=== PATIENT | female | born 2000 ===

== ENCOUNTER 2025-01-19 08:00 | Inpatient (IN) | payer OTHER ==
[~2025-01-19] VITALS: Ht 172.7 cm; Wt 100.7 kg
[2025-01-19 11:01] LABS: BASO % 0.5 % (0.1-1.2); EOS # 0.18 (0.04-0.54); EOS % 1.9 % (0.7-7.0); LYMPH # 1.41 (1.18-3.74); LYMPH % 15.1 % (19.3-53.1); MEAN PLATELET VOLUME 12.60 fl (9.4-12.4); MONO # 0.82 (0.24-0.82); MONO % 8.8 % (4.7-12.5); NEUT # 6.81 (1.56-6.13); NEUT % 73.3 % (34.0-71.1); RED CELL DISTRIBUTION WIDTH 13.9 % (11.6-14.4)
[2025-01-19 11:03] LABS: URINE APPEARANCE Clear; URINE BILIRRUBIN Negative (NEGATIVE); URINE BLOOD Negative; URINE COLOR Yellow; URINE GLUCOSE Negative (NEGATIVE); URINE KETONE Negative (NEGATIVE); URINE LEUKOCYTE Negative; URINE NITRATE Negative; URINE PROTEIN Negative (NEGATIVE); URINE UROBILINOGEN 1.0 E.U./dl
[2025-01-19 11:05] LABS: URINE BACTERIA 118.8 uL (0.0-1933); URINE EPITHELIAL CELLS 13.5 uL (0.0-38.8); URINE WBC 4.9 uL (0.0-23.2)
[2025-01-19 11:16] LABS: URINE CAST 0.14 uL (0.0-1.40); URINE RBC 1.3 uL (0.0-20.8)
[2025-01-19 11:46] LABS: INR 0.95
[2025-01-19 11:57] LABS: ALT/SGPT 36.0 U/L (12-78); AST/SGOT 19.0 U/L (15-37); BILIRUBIN TOTAL 0.27 mg/dL (0.3-1.2); BUN CREA RATIO 21.0 (7.0-25.0); CREATININE SERUM 0.48 mg/dL (0.55-1.02); GFR 161.72; GLOBULINA 3.7 G/DL (2.4-3.5); GLUCOSE FASTING 67.0 mg/dL (65-100); OSMOLALITY SERUM 277.0 MOSM/KG (275-295)
[2025-01-23 19:20] VITALS: BP 115/64
[2025-01-23] MEDS ORDERED: PRENATAL TABLE1 EAC1 PO (20:19)
[2025-01-23 20:22] VITALS: BP 115/64
[2025-01-23] MEDS ORDERED: RINGERS SOLUTION,LACTATED 1,000 ML IV SCH (20:45)
[2025-01-23 23:26] VITALS: BP 139/79
[2025-01-23] MEDS ORDERED: MORPHINE SULFATE 4 MG/ML CARTRIDGE IV ONE (23:45)
[2025-01-24 03:07] VITALS: BP 131/76
[2025-01-24] MEDS ORDERED: MORPHINE SULFATE 4 MG/ML CARTRIDGE IV ONE (03:45)
[2025-01-24] MEDS ORDERED: ERYTHROMYCIN BASE OPHT 1GM EACH TUBE OP ONE (05:47)
[2025-01-24] MEDS ORDERED: OXYTOCIN 20 UNITS/1000ML RL PIGGYBAG IV ONE (05:47)
[2025-01-24] MEDS ORDERED: CHLORHEXIDINE GLUCONATE 120 ML BOTTLE TOP ONE (05:47)
[2025-01-24] MEDS ORDERED: LIDOCAINE HCL 1% 10ML VIAL ONE (05:48)
[2025-01-24] MEDS ORDERED: CHLORHEXIDINE GLUCONATE 120 ML BOTTLE TP SCH (08:15)
[2025-01-24] MEDS ORDERED: OXYTOCIN 1,000 ML IV SCH (08:15)
[2025-01-24] MEDS ORDERED: PNV,CALCIUM 72/IRON/FOLIC ACID 1 TAB TABLET PO SCH (09:00)
[2025-01-24 10:50] VITALS: BP 125/79
[2025-01-24 15:49] VITALS: BP 120/71
[2025-01-25 01:50] VITALS: BP 118/76
[2025-01-25 06:14] LABS: BASO % 0.4 % (0.1-1.2); EOS # 0.14 (0.04-0.54); EOS % 1.1 % (0.7-7.0); LYMPH # 2.44 (1.18-3.74); LYMPH % 18.4 % (19.3-53.1); MEAN PLATELET VOLUME 12.50 fl (9.4-12.4); MONO # 1.19 (0.24-0.82); MONO % 9.0 % (4.7-12.5); NEUT # 9.34 (1.56-6.13); NEUT % 70.4 % (34.0-71.1); RED CELL DISTRIBUTION WIDTH 14.6 % (11.6-14.4)
[2025-01-25 08:35] VITALS: BP 119/81
[2025-01-25 13:27] VITALS: BP 127/82
[2025-01-25 16:00] VITALS: BP 118/81
[2025-01-26] VITALS: BP 115/80
[2025-01-26 08:56] VITALS: BP 130/84
== END 2025-01-26 15:12 | disposition home or self-care (01) | DRG 807 ==
LOC: LDR 01-23 19:59 → OB/GYN 01-23 19:59
PROVIDERS: Obstetrics & Gynecology; ADMIT Student in an Organized Health Care Education/Training Program; ATTEND Student in an Organized Health Care Education/Training Program
PROC: 4A1HXCZ Monitoring of Products of Conception, Cardiac Rate, External Approach (ICD-10-PCS; 2025-01-23)
PROC: 10E0XZZ Delivery of Products of Conception, External Approach (ICD-10-PCS; principal; 2025-01-24)
PROC: 0UQG7ZZ Repair Vagina, Via Natural or Artificial Opening (ICD-10-PCS; 2025-01-24)
PROC: 0W8NXZZ Division of Female Perineum, External Approach (ICD-10-PCS; 2025-01-24)
DX: O71.4 Obstetric high vaginal laceration alone (principal); Z37.0 Single live birth; Z3A.38 38 weeks gestation of pregnancy